=== PATIENT | male | born 1975 | race Two or more races ===

== ENCOUNTER 2016-10-18 17:23 | Emergency (ER) | payer MEDICAID ==
[~2016-10-18] VITALS: Ht 175.3 cm; Wt 74.8 kg
[~2016-10-18 17:23] MED LIST: PHEN100C4 PO
[2016-10-18] MEDS ORDERED: DIVALPROEX SODIUM 500 MG TABLET.DR PO ONE ×2 (17:55→18:00)
[2016-10-18] MEDS ORDERED: PHENYTOIN EXTENDED RELEASE 100 MG CAPSULE PO ONE ×2 (17:56→18:00)
[2016-10-18 18:41] VITALS: BP 109/69
== END 2016-10-18 18:41 | disposition home or self-care (01) ==
LOC: ER 17:25
DX: G40.909 Epilepsy, unspecified, not intractable, without status epilepticus (principal); M25.532 Pain in left wrist
CPT/HCPCS: 99283; A4606; Z7610

== ENCOUNTER 2017-11-19 08:01 | Emergency (ER) | payer MEDICAID ==
[~2017-11-19] VITALS: Ht 175.3 cm; Wt 74.8 kg
--- NOTE | 2017-11-19 08:31 | NUR ---
PT TO ED DT "STD SYMPTOMS AND LESIONS ON GROIN" X 2 WEEKS. PATIENT IS AFEBRILE. VSS
[2017-11-19 08:57] LABS: APPEARANCE,URINE Clear (CLEAR); BILIRUBIN,URINE Negative (NEGATIVE); BLOOD, URINE Trace-intact Ery/uL (NEGATIVE); COLOR,URINE Yellow (YELLOW); KETONES,URINE 15 (NEGATIVE); LEUKOCYTE ESTERASE ,URINE Negative (NEGATIVE); NITRITE, URINE Negative (NEGATIVE); PROTEIN,URINE 30 mg/dl (NEGATIVE); UGLUCOSE Negative (NEGATIVE)
[2017-11-19] MEDS ORDERED: METRONIDAZOLE 500 MG TABLET PO ONE (09:00)
[2017-11-19] MEDS ORDERED: CEFTRIAXONE 1 G VIAL IM ONE (09:00)
[2017-11-19] MEDS ORDERED: AZITHROMYCIN 250 MG TABLET PO ONE (09:00)
[2017-11-19] MEDS ORDERED: CEFTRIAXONE 500 MG VIAL ONE (09:03)
[2017-11-19] MEDS ORDERED: AZITHROMYCIN 250 MG TABLET ONE (09:03)
[2017-11-19] MEDS ORDERED: METRONIDAZOLE 500 MG TABLET ONE (09:03)
[2017-11-19] MEDS ORDERED: LIDOCAINE /MPF 1% VIAL 5 ML VIAL ONE (09:04)
[2017-11-19 09:08] LABS: BACTERIA,URINE None seen /HPF (None Seen); SQUAMOUS EPITHELIAL CELL,UR Few /HPF (None Seen)
[2017-11-19 09:09] LABS: RBC,URINE 20-50 /HPF (0-2)
[2017-11-19 09:21] VITALS: BP 120/60
--- NOTE | 2017-11-19 09:22 | NUR ---
Patient discharged to home in stable condition. Written and verbal after care instructions given. Patient verbalizes understanding of instruction.
[2017-11-19] MEDS ORDERED: HYDROCODONE/APAP 5/325MG 1 EACH TABLET ONE (09:44)
[2017-11-19] MEDS ORDERED: HYDROCODONE/APAP 5/325MG 1 EACH TABLET PO ONE (10:00)
== END 2017-11-19 09:22 | disposition home or self-care (01) ==
LOC: ER 08:06
DX: A64 Unspecified sexually transmitted disease (principal); A63.0 Anogenital (venereal) warts; F17.200 Nicotine dependence, unspecified, uncomplicated; Z98.890 Other specified postprocedural states; Z60.2 Problems related to living alone
CPT/HCPCS: 81000-TC; A4606; J0696; J3490; Z7610

== ENCOUNTER 2018-08-04 10:03 | Emergency (ER) | payer MEDICAID ==
[~2018-08-04] VITALS: Ht 165.1 cm; Wt 70.3 kg
--- NOTE | 2018-08-04 11:04 | NUR ---
FEELING DIZZY LIKE THE ROOM IS SPINNING SINCE WAKING UP THIS MORNING. AOX4, RR EVEN AND UNLABORED, SOME NAUSEA. DENIES SOB, WEAKNESS, VOMITING. READY FOR EVAL. WILL CONT TO MONITOR.
[2018-08-04] MEDS ORDERED: IV NS 0.9% 1,000 ML BAG IV ONE (11:30)
[2018-08-04] MEDS ORDERED: METOCLOPRAMIDE HCL 10 MG/2 ML VIAL IV ONE (11:30)
[2018-08-04] MEDS ORDERED: MECLIZINE HCL 12.5 MG TABLET PO ONE (11:30)
[2018-08-04] MEDS ORDERED: MECLIZINE HCL 12.5 MG TABLET ONE (11:57)
[2018-08-04] MEDS ORDERED: METOCLOPRAMIDE HCL 10 MG/2 ML VIAL ONE (11:57)
--- NOTE | 2018-08-04 12:45 | NUR ---
PT ABLE TO AMBULATE WITHOUT C/O DIZZINESS OR ANY OTHER DISCOMFORT, MD AWARE.
--- NOTE | 2018-08-04 13:10 | NUR ---
IV removed. Catheter intact and site benign. Pressure and 4x4 applied to site. No bleeding noted. Patient discharged to home in stable condition. Written and verbal after care instructions given. Patient verbalizes understanding of instruction.
[2018-08-04 13:24] VITALS: BP 122/76
== END 2018-08-04 13:25 | disposition home or self-care (01) ==
LOC: ER 10:07
DX: H81.10 Benign paroxysmal vertigo, unspecified ear (principal); R56.9 Unspecified convulsions; M54.5 Low back pain; F17.200 Nicotine dependence, unspecified, uncomplicated; Z60.2 Problems related to living alone; Z98.890 Other specified postprocedural states
CPT/HCPCS: 36415; 80185-TC; A4606; J2765; J7030; J8597; Z7610

== ENCOUNTER 2020-02-06 19:29 | Emergency (ER) | payer MEDICAID ==
[~2020-02-06] VITALS: Ht 172.7 cm; Wt 94.3 kg
[2020-02-06 19:49] VITALS: BP 116/69
== END 2020-02-06 21:32 | disposition home or self-care (01) ==
LOC: ER 19:30
DX: S52.122A Displaced fracture of head of left radius, initial encounter for closed fracture (principal); F17.200 Nicotine dependence, unspecified, uncomplicated; Z98.890 Other specified postprocedural states; Z60.2 Problems related to living alone; Z79.899 Other long term (current) drug therapy; V00.131A Fall from skateboard, initial encounter; Y93.51 Activity, roller skating (inline) and skateboarding; Y92.89 Other specified places as the place of occurrence of the external cause; Y99.8 Other external cause status
CPT/HCPCS: 73070-TC

== ENCOUNTER 2025-07-25 09:25 | Emergency (ER) | payer MEDICAID ==
[~2025-07-25] VITALS: Ht 170.2 cm; Wt 109.3 kg
[2025-07-25] MEDS ORDERED: KETOROLAC TROMETHAMINE INJ 30 MG/ML VIAL ONE (09:57)
[2025-07-25] MEDS ORDERED: ACETAMINOPHEN 325 MG TABLET ONE (09:58)
[2025-07-25] MEDS: KETOROLAC TROMETHAMINE INJ 30 MG/ML VIAL IM ONE (10:04)
[2025-07-25] MEDS: ACETAMINOPHEN 325 MG TABLET PO ONE (10:05)
[2025-07-25 13:17] VITALS: BP 115/66; TEMP 98; O2SAT 98
== END 2025-07-25 13:17 | disposition home or self-care (01) ==
LOC: ER 09:30
DX: M79.641 Pain in right hand (principal); F17.200 Nicotine dependence, unspecified, uncomplicated; F41.9 Anxiety disorder, unspecified; F32.A Depression, unspecified; K21.9 Gastro-esophageal reflux disease without esophagitis; Z79.899 Other long term (current) drug therapy
CPT/HCPCS: 99284; 96372; 73130; 73110; J1885